=== PATIENT | female | born 1945 | race Caucasian/White ===

== ENCOUNTER 2016-07-17 19:33 | Observation (INO) | payer MEDICARE ==
[~2016-07-17 19:33] MED LIST: ALDACTONE50 MG PO; ASPIRIN EC325 M1 PO; CARTIA XT180 M1 PO; COUMADIN5 M1 PO; DIVALPROEX SOD500 M2 PO; KEPPRA1000 M1 PO; LASIX40 M1 PO; METOPROLOL TART25 M1 PO; MULTIVITAMINS1 EAC6 PO; NYSTATIN1 EACH MC; SERTRALINE HCL25 MG PO; SIMVASTATIN40 MG PO; SYMBICORT 80-41 PUFF INH; XANAX0.25 MG PO
[2016-07-17] MEDS ORDERED: LEVETIRACETAM250 M1 PO (19:43)
[2016-07-17] MEDS ORDERED: TYLENOL325 M2 PO (19:45)
[2016-07-17] MEDS ORDERED: XARELTO20 M1 PO (19:45)
[2016-07-17] MEDS ORDERED: SINEMET 25-2501 EAC1 PO (19:45)
[2016-07-17] MEDS ORDERED: POTASSIUM CHLO10 ME2 PO (19:46)
[2016-07-17] MEDS ORDERED: VIMPAT50 MG/TAB PO (19:46)
[2016-07-17] MEDS ORDERED: ROSUVASTATIN CA10 MG PO (19:46)
[2016-07-17 20:10] LABS: BASO % 0.1 % (0-2); EOS % 0.9 % (0-7); EOSINOPHIL ABSOLUTE COUNT 0.1 tho/cmm (0.0-0.7); HCT-HEMATOCRIT 39.8 % (34.0-49.0); IMMATURE GRANULOCYTES ABSOLUTE 0.03 tho/cmm (0-0.03); IMMATURE GRANULOCYTES PERCENT 0.2 % (0-0.3); LYMPH % 12.6 % (20-45); LYMPH ABSOLUTE COUNT 1.8 tho/cmm (0.8-4.5); MCH (MEAN CORPUSCULAR HGB) 28.3 pg (28.0-32.0); MCHC MEAN CORPUSCULAR HGB CONC 32.7 % (32.0-36.0); MCV (MEAN CELL VOLUME) 86.5 fl (82.0-96.0); MEAN PLATELET VOLUME 10.2 cmc (9.4-12.4); MONO % 10.8 % (0-12); MONOCYTE ABSOLUTE COUNT 1.5 tho/cmm (0.0-1.2); NEUTROPHIL ABSOLUTE COUNT 10.8 tho/cmm (1.6-8.0); NEUTROPHIL-AUTOMATED 10.8 tho/cmm (1.6-8.0); NEUTROPHILS % 75.4 % (40-80); PLATELET COUNT 273 tho/cmm (150-450); RED CELL DISTRIBUTION WIDTH 16.8 % (12.4-16.4); WHITE BLOOD COUNT 14.3 tho/cmm (4.0-10.0)
[2016-07-17 20:24] LABS: ANION GAP 15 mmol/L (0-20); BLOOD UREA NITROGEN 12 mg/dl (6-24); CALCIUM 8.9 mg/dl (8.5-10.5); CARBON DIOXIDE-VENOUS 23 mmol/L (22-32); CHLORIDE 104 mmol/l (96-110); CREATININE 0.62 mg/dl (0.50-1.10); GLUCOSE 109 mg/dL (70-110); SODIUM 137 mmol/L (135-145); eGFR VALUE FOR BLACK >60 mL/Min
[2016-07-17 20:30] LABS: POTASSIUM 4.9 mmol/L (3.7-5.1)
[2016-07-17 23:53] LABS: C-REACTIVE PROTEIN 2.1 mg/dl (0-0.9)
[2016-07-18 00:13] LABS: PROCALCITONIN <0.05 ng/ml (0.05-0.09)
[2016-07-18 07:25] LABS: BASO % 0.2 % (0-2); EOS % 0.1 % (0-7); HCT-HEMATOCRIT 38.4 % (34.0-49.0); HGB-HEMOGLOBIN 12.4 gm/dl (12.0-15.5); IMMATURE GRANULOCYTES ABSOLUTE 0.03 tho/cmm (0-0.03); IMMATURE GRANULOCYTES PERCENT 0.2 % (0-0.3); LYMPH % 7.9 % (20-45); MCH (MEAN CORPUSCULAR HGB) 27.7 pg (28.0-32.0); MCHC MEAN CORPUSCULAR HGB CONC 32.3 % (32.0-36.0); MCV (MEAN CELL VOLUME) 85.7 fl (82.0-96.0); MEAN PLATELET VOLUME 10.8 cmc (9.4-12.4); MONO % 12.9 % (0-12); MONOCYTE ABSOLUTE COUNT 1.7 tho/cmm (0.0-1.2); NEUTROPHIL ABSOLUTE COUNT 10.2 tho/cmm (1.6-8.0); NEUTROPHIL-AUTOMATED 10.2 tho/cmm (1.6-8.0); NEUTROPHILS % 78.7 % (40-80); PLATELET COUNT 274 tho/cmm (150-450); RED BLOOD COUNT 4.48 mil/cmm (4.00-5.20); RED CELL DISTRIBUTION WIDTH 16.7 % (12.4-16.4)
[2016-07-19 06:07] LABS: BASO % 0.2 % (0-2); EOS % 1.1 % (0-7); EOSINOPHIL ABSOLUTE COUNT 0.1 tho/cmm (0.0-0.7); HCT-HEMATOCRIT 38.6 % (34.0-49.0); HGB-HEMOGLOBIN 12.3 gm/dl (12.0-15.5); IMMATURE GRANULOCYTES ABSOLUTE 0.01 tho/cmm (0-0.03); IMMATURE GRANULOCYTES PERCENT 0.1 % (0-0.3); LYMPH % 15.5 % (20-45); LYMPH ABSOLUTE COUNT 1.3 tho/cmm (0.8-4.5); MCH (MEAN CORPUSCULAR HGB) 27.8 pg (28.0-32.0); MCHC MEAN CORPUSCULAR HGB CONC 31.9 % (32.0-36.0); MCV (MEAN CELL VOLUME) 87.1 fl (82.0-96.0); MONO % 12.2 % (0-12); NEUTROPHIL ABSOLUTE COUNT 5.8 tho/cmm (1.6-8.0); NEUTROPHIL-AUTOMATED 5.8 tho/cmm (1.6-8.0); NEUTROPHILS % 70.9 % (40-80); PLATELET COUNT 272 tho/cmm (150-450); RED BLOOD COUNT 4.43 mil/cmm (4.00-5.20); RED CELL DISTRIBUTION WIDTH 16.8 % (12.4-16.4); WHITE BLOOD COUNT 8.1 tho/cmm (4.0-10.0)
[2016-07-19 06:30] LABS: ALB/GLOB RATIO 0.6 (0.8-2.0); ALBUMIN 2.9 g/dl (3.5-5.0); ALKALINE PHOSPHATASE 74 U/L (33-138); AST/SGOT 22 U/L (10-40); BILIRUBIN,TOTAL 0.6 mg/dl (0-1.5); BLOOD UREA NITROGEN 9 mg/dl (6-24); CALCIUM 8.8 mg/dl (8.5-10.5); CARBON DIOXIDE-VENOUS 27 mmol/L (22-32); CHLORIDE 103 mmol/l (96-110); CREATININE 0.71 mg/dl (0.50-1.10); GLUCOSE 149 mg/dL (70-110); MAGNESIUM 2.2 mg/dl (1.3-2.6); PHOSPHOROUS 2.7 mg/dl (2.5-4.9); SODIUM 137 mmol/L (135-145); eGFR VALUE FOR BLACK >60 mL/Min
[2016-07-19 06:36] LABS: ALT/SGPT <10 U/L (12-78); ANION GAP 11 mmol/L (0-20); POTASSIUM 3.9 mmol/L (3.7-5.1)
[2016-07-21 09:27] LABS: ALB/GLOB RATIO 0.5 (0.8-2.0); ALBUMIN 2.7 g/dl (3.5-5.0); ALKALINE PHOSPHATASE 70 U/L (33-138); ALT/SGPT 12 U/L (12-78); BLOOD UREA NITROGEN 11 mg/dl (6-24); CALCIUM 8.7 mg/dl (8.5-10.5); CARBON DIOXIDE-VENOUS 27 mmol/L (22-32); CHLORIDE 100 mmol/l (96-110); CREATINE PHOSPHOKINASE (CPK) 36 U/L (21-215); CREATININE 0.72 mg/dl (0.50-1.10); GLUCOSE 198 mg/dL (70-110); SODIUM 136 mmol/L (135-145); eGFR VALUE FOR BLACK >60 mL/Min
[2016-07-21 09:28] LABS: ANION GAP 14 mmol/L (0-20); CKMB <0.5 ng/ml (<3.6)
[2016-07-21 09:29] LABS: AST/SGOT 32 U/L (10-40); POTASSIUM 4.6 mmol/L (3.7-5.1)
[2016-07-21 10:58] LABS: BASO % 0.1 % (0-2); EOS % 0.2 % (0-7); HCT-HEMATOCRIT 35.6 % (34.0-49.0); HGB-HEMOGLOBIN 11.5 gm/dl (12.0-15.5); IMMATURE GRANULOCYTES ABSOLUTE 0.03 tho/cmm (0-0.03); IMMATURE GRANULOCYTES PERCENT 0.2 % (0-0.3); LYMPH % 5.2 % (20-45); LYMPH ABSOLUTE COUNT 0.7 tho/cmm (0.8-4.5); MCH (MEAN CORPUSCULAR HGB) 28.1 pg (28.0-32.0); MCHC MEAN CORPUSCULAR HGB CONC 32.3 % (32.0-36.0); MEAN PLATELET VOLUME 10.3 cmc (9.4-12.4); MONO % 10.2 % (0-12); MONOCYTE ABSOLUTE COUNT 1.3 tho/cmm (0.0-1.2); NEUTROPHIL ABSOLUTE COUNT 10.5 tho/cmm (1.6-8.0); NEUTROPHIL-AUTOMATED 10.5 tho/cmm (1.6-8.0); NEUTROPHILS % 84.1 % (40-80); PLATELET COUNT 180 tho/cmm (150-450); RED BLOOD COUNT 4.09 mil/cmm (4.00-5.20); RED CELL DISTRIBUTION WIDTH 16.4 % (12.4-16.4)
[2016-07-21 11:02] LABS: WHITE BLOOD COUNT 12.5 tho/cmm (4.0-10.0)
[2016-07-21 16:19] LABS: CREATINE PHOSPHOKINASE (CPK) 31 U/L (21-215)
[2016-07-21 16:34] LABS: CKMB <0.5 ng/ml (<3.6)
[2016-07-21 18:15] LABS: CKMB <0.5 ng/ml (<3.6); CREATINE PHOSPHOKINASE (CPK) 41 U/L (21-215)
[2016-07-22] MEDS ORDERED: BUSPIRONE HCL15 M2 PO (14:40)
== END 2016-07-22 16:11 ==
LOC: EDMED 19:33 → EMR2 22:38 → 5EB 07-18 00:36
PROVIDERS: Emergency Medicine; Hospitalist; Internal Medicine; Registered Nurse; ADMIT Internal Medicine
PROC: 0S9D3ZZ Drainage of Left Knee Joint, Percutaneous Approach (ICD-10-PCS; 2016-07-18)
PROC: 05HD33Z Insertion of Infusion Device into Right Cephalic Vein, Percutaneous Approach (ICD-10-PCS; principal; 2016-07-21)
DX: M25.562 Pain in left knee (principal); D72.829 Elevated white blood cell count, unspecified; I10 Essential (primary) hypertension; G47.33 Obstructive sleep apnea (adult) (pediatric); J44.9 Chronic obstructive pulmonary disease, unspecified; G40.909 Epilepsy, unspecified, not intractable, without status epilepticus; I48.91 Unspecified atrial fibrillation; E11.9 Type 2 diabetes mellitus without complications; I25.10 Atherosclerotic heart disease of native coronary artery without angina pectoris; I07.1 Rheumatic tricuspid insufficiency; I27.2 Other secondary pulmonary hypertension; Z66 Do not resuscitate; Z79.01 Long term (current) use of anticoagulants; Z79.82 Long term (current) use of aspirin; Z79.899 Other long term (current) drug therapy; Z88.0 Allergy status to penicillin; Z88.1 Allergy status to other antibiotic agents; Z86.73 Personal history of transient ischemic attack (TIA), and cerebral infarction without residual deficits; Z82.49 Family history of ischemic heart disease and other diseases of the circulatory system; Z90.49 Acquired absence of other specified parts of digestive tract; Z90.710 Acquired absence of both cervix and uterus; Z90.89 Acquired absence of other organs; Z98.41 Cataract extraction status, right eye; Z98.890 Other specified postprocedural states; Z99.89 Dependence on other enabling machines and devices
CPT/HCPCS: C1751; G0378; G8978-GO-CK; G8978-GP-CK; G8979-GO-CJ; G8979-GP-CJ; G8980-GO-CK; G8980-GP-CK; J1815; J2060; J2270; J2405; J7030

== ENCOUNTER 2016-08-24 15:29 | Emergency (ER) | payer MEDICARE ==
[~2016-08-24 15:29] MED LIST changes: +BUSPIRONE HCL15 M2 PO; +LEVETIRACETAM250 M1 PO; +POTASSIUM CHLO10 ME2 PO; +ROSUVASTATIN CA10 MG PO; +SINEMET 25-2501 EAC1 PO; +TYLENOL325 M2 PO; +VIMPAT50 MG/TAB PO; +XARELTO20 M1 PO
[2016-08-24] MEDS ORDERED: HYDROCODON-ACE1 EA16 PO (15:35)
[2016-08-24] MEDS ORDERED: ROBAXIN-750750 M1 PO (15:36)
[2016-08-24] MEDS ORDERED: KEPPRA250 M1 PO (15:38)
[2016-08-24 16:20] LABS: BASO % 0.1 % (0-2); EOS % 0.5 % (0-7); EOSINOPHIL ABSOLUTE COUNT 0.1 tho/cmm (0.0-0.7); HCT-HEMATOCRIT 40.9 % (34.0-49.0); HGB-HEMOGLOBIN 13.3 gm/dl (12.0-15.5); IMMATURE GRANULOCYTES ABSOLUTE 0.06 tho/cmm (0-0.03); IMMATURE GRANULOCYTES PERCENT 0.4 % (0-0.3); LYMPH ABSOLUTE COUNT 1.6 tho/cmm (0.8-4.5); MCH (MEAN CORPUSCULAR HGB) 27.4 pg (28.0-32.0); MCHC MEAN CORPUSCULAR HGB CONC 32.5 % (32.0-36.0); MCV (MEAN CELL VOLUME) 84.2 fl (82.0-96.0); MEAN PLATELET VOLUME 9.8 cmc (9.4-12.4); MONOCYTE ABSOLUTE COUNT 2.1 tho/cmm (0.0-1.2); NEUTROPHIL ABSOLUTE COUNT 10.9 tho/cmm (1.6-8.0); NEUTROPHIL-AUTOMATED 10.9 tho/cmm (1.6-8.0); PLATELET COUNT 315 tho/cmm (150-450); RED BLOOD COUNT 4.86 mil/cmm (4.00-5.20); RED CELL DISTRIBUTION WIDTH 15.9 % (12.4-16.4); WHITE BLOOD COUNT 14.7 tho/cmm (4.0-10.0)
[2016-08-24] MEDS ORDERED: TYLENOL ARTHRI650 M1 PO (16:20)
[2016-08-24] MEDS ORDERED: ASPIRIN EC81 MG PO (16:21)
[2016-08-24 16:48] LABS: ANION GAP 12 mmol/L (0-20); BLOOD UREA NITROGEN 9 mg/dl (6-24); CALCIUM 8.2 mg/dl (8.5-10.5); CARBON DIOXIDE-VENOUS 28 mmol/L (22-32); CHLORIDE 101 mmol/l (96-110); CREATININE 0.63 mg/dl (0.50-1.10); GLUCOSE 148 mg/dL (70-110); SODIUM 137 mmol/L (135-145); eGFR VALUE FOR BLACK >90 mL/Min
[2016-08-24 16:49] LABS: POTASSIUM 4.1 mmol/L (3.7-5.1)
== END 2016-08-24 19:00 ==
LOC: EDMED 15:29
PROVIDERS: Emergency Medicine
DX: R07.89 Other chest pain (principal); I48.91 Unspecified atrial fibrillation; I25.10 Atherosclerotic heart disease of native coronary artery without angina pectoris; J44.9 Chronic obstructive pulmonary disease, unspecified; E78.5 Hyperlipidemia, unspecified; E11.9 Type 2 diabetes mellitus without complications; Z86.73 Personal history of transient ischemic attack (TIA), and cerebral infarction without residual deficits; Z79.899 Other long term (current) drug therapy; Z90.710 Acquired absence of both cervix and uterus